=== PATIENT | male | born 1980 | race Caucasian/White ===

== ENCOUNTER 2021-06-15 11:23 | Day surgery (SDC) | payer OTHER ==
[~2021-06-15] VITALS: Ht 177.8 cm; Wt 120.3 kg
== END 2021-06-15 15:25 | disposition home or self-care (01) ==
LOC: ORSCSDS 11:23
PROVIDERS: Orthopaedic Surgery
PROC: 0SBC4ZZ Excision of Right Knee Joint, Percutaneous Endoscopic Approach (ICD-10-PCS; principal; 2021-06-15 13:15)
DX: S83.231A Complex tear of medial meniscus, current injury, right knee, initial encounter (principal); K21.9 Gastro-esophageal reflux disease without esophagitis; E66.01 Morbid (severe) obesity due to excess calories; Z68.38 Body mass index [BMI] 38.0-38.9, adult
CPT/HCPCS: J0690; J1885; J2250; J2704; J3010; J7120

== ENCOUNTER → 2023-11-16 | Outpatient (CLI) | payer OTHER | END | disposition home or self-care (01) | LOC: LAB 08:00 → LAB SHORT 08:00 | DX: S81.802A Unspecified open wound, left lower leg, initial encounter (principal); S89.92XA Unspecified injury of left lower leg, initial encounter | CPT/HCPCS: 87070; 87075; 87077; 87147; 87186; 87205 ==